=== PATIENT | male | born 1995 | race Caucasian/White ===

== ENCOUNTER 2018-04-08 13:07 | Emergency (ER) | payer BC ==
[~2018-04-08] VITALS: Ht 172.7 cm; Wt 58.1 kg
--- NOTE | 2018-04-08 14:05 | NUR ---
PT IS IN ROOM #2B. DR MEJIA EVALUATED THE PT.
[2018-04-08] MEDS ORDERED: PENICILLIN G BENZATHINE 2.4 MMU/4 ML DISP.SYRIN IM ONE ×2 (14:15→14:25)
--- NOTE | 2018-04-08 14:30 | NUR ---
PT WAS D/C'D TO HOME. D/C INSTRUCTIONS GIVEN TO THE PT BY DR MEJIA.
[2018-04-08 14:31] VITALS: BP 128/71
== END 2018-04-08 14:31 | disposition home or self-care (01) ==
LOC: ER 13:07
DX: A53.0 Latent syphilis, unspecified as early or late (principal)
CPT/HCPCS: A4663